=== PATIENT | male | born 2000 | race Two or more races ===

== ENCOUNTER 2020-11-09 12:24 | Emergency (ER) | payer OTHER ==
[~2020-11-09] VITALS: Ht 182.9 cm; Wt 90.7 kg
[2020-11-09 12:42] VITALS: BP 101/57
--- NOTE | 2020-11-09 13:59 | NUR ---
PATIENT A/OX4, BREATHING EVEN AND UNLABORED, NO SOB NOTED, NEEDS ATTENDED, AMBULATORY WITH STEADY GAIT. NO DISTRESS NOTED. SEEN AND EVALUATED BY DR. CHAVIRA AND MEDICALLY CLEARED.
== END 2020-11-09 14:02 | disposition home or self-care (01) ==
LOC: ER 12:27
DX: F19.90 Other psychoactive substance use, unspecified, uncomplicated (principal); R51.9 Headache, unspecified